=== PATIENT | male | born 1965 | race Caucasian/White ===

== ENCOUNTER 2017-03-04 15:00 | Emergency (ER) | payer MEDICAID ==
[~2017-03-04] VITALS: Ht 162.6 cm; Wt 98.4 kg
[2017-03-04 15:32] VITALS: Ht 162.6 cm; Wt 98.4 kg
[2017-03-04 18:13] VITALS: BP 143/97
== END 2017-03-04 18:13 | disposition home or self-care (01) ==
LOC: ED 15:00
DX: J06.9 Acute upper respiratory infection, unspecified (principal); H66.92 Otitis media, unspecified, left ear; I10 Essential (primary) hypertension
CPT/HCPCS: J7613